=== PATIENT | male | born 1955 | race Caucasian/White ===

== ENCOUNTER 2019-03-25 19:39 | Emergency (ER) | payer OTHER ==
[~2019-03-25] VITALS: Ht 180.3 cm; Wt 90.7 kg
[~2019-03-25 19:39] MED LIST: CYCL10 PO; OXYACE5T PO; PRED20 PO; PROM25 PO
[2019-03-25] MEDS ORDERED: Robaxin-750750 MG PO (21:39)
[2019-03-25] MEDS ORDERED: Prednisone20 MG PO (21:39)
== END 2019-03-25 21:47 | disposition home or self-care (01) ==
LOC: ER 19:39
DX: M54.16 Radiculopathy, lumbar region (principal)
CPT/HCPCS: 72100; 99283-25; J1100

== ENCOUNTER 2021-06-18 10:42 | Day surgery (SDC) | payer OTHER ==
[~2021-06-18] VITALS: Ht 180.3 cm; Wt 89.3 kg
[~2021-06-18 10:42] MED LIST changes: +Prednisone20 MG PO; +Robaxin-750750 MG PO
== END 2021-06-18 13:00 | disposition home or self-care (01) ==
LOC: ORSCSDS 10:42
PROVIDERS: Internal Medicine Gastroenterology
PROC: 0DBN8ZX Excision of Sigmoid Colon, Via Natural or Artificial Opening Endoscopic, Diagnostic (ICD-10-PCS; principal; 2021-06-18 12:00)
DX: Z12.11 Encounter for screening for malignant neoplasm of colon (principal); K63.5 Polyp of colon; K57.30 Diverticulosis of large intestine without perforation or abscess without bleeding; K64.4 Residual hemorrhoidal skin tags; Z87.891 Personal history of nicotine dependence
CPT/HCPCS: 88305; J2704; J7120